=== PATIENT | female | born 1965 | race Caucasian/White ===

== ENCOUNTER → 2019-12-22 09:47 | Outpatient (BNVA) | payer BC, SELFPAY | PROVIDERS: Family Provider Family Medicine; PCP Family Medicine; Visit Provider Nurse Practitioner Family | DX: E11.9 Type 2 diabetes mellitus without complications (principal); I10 Essential (primary) hypertension; E78.00 Pure hypercholesterolemia, unspecified; K21.9 Gastro-esophageal reflux disease without esophagitis; Z68.30 Body mass index [BMI] 30.0-30.9, adult; E78.2 Mixed hyperlipidemia | CPT/HCPCS: 80053; 80061; 82044; 83036; 84439; 84443 ==

== ENCOUNTER 2020-02-16 07:20 | Day surgery (SDC) | payer BC, SELFPAY ==
[2020-02-15 12:34] VITALS: BMI 31.1
[2020-02-16 07:33] VITALS: BP 116/78; PULSE 80; RESP 18; TEMP 36.1; O2SAT 98
[2020-02-16 07:47] LABS: Glucose Point of Care 97 mg/dL (70-110)
[2020-02-16] MEDS: sodium chloride 0.9% 1,000 ML 30 ML IV (07:53)
--- NOTE | 2020-02-16 07:53 | ANES.PREANE2 ---
Pre-Anesthetic Assessment Pre-Anesthetic Assessment: Height/Weight: Height 1.57 m Weight 77.111 kg Temp Pulse Resp BP Pulse Ox 97.0 F L 80 18 116/78 98 02/16/20 07:33 02/16/20 07:33 02/16/20 07:33 02/16/20 07:33 02/16/20 07:33 Preop Diagnosis: GERD Proposed Procedure: Operation Date: 02/16/20 09:00 Proposed Procedures p EGD 68767 K21.9(Not Applicable) - Uvaldo Velazquez MD s Colonoscopy G0121 Z12.11(Not Applicable) - Uvaldo Velazquez MD Familial anesthetic complications: None Was Beta Timmy taken within 24 hours: N/A Last intake: Intake NPO > 8 hrs Last Liquid Date 02/15/20 Last Liquid Time 23:00 Social: Social History: Tobacco and No alcohol Packs per day: 1 ppd Exam: Pre-Anes Outpt Exam: alert, oriented x 3, clear to auscultation bilaterally and regular rate & rhythm Airway: Cervical ROM: WNL MP: 2 Dentition: Other Additional comments: edentulous Pulmonary: Pulmonary: Sleep apnea (cpap) CV/HEM: CV/HEM: HTN : : None reported Hepatic: Hepatic: None reported GI: GI: GERD Metabolic: Metabolic: DM Musc/skel: Musc/skel: None reported Neuropsych: Neuropsych: Seizure (epilepsy on zonisamide (last one 2 years)) Anesthetic Plan: ASA status: 2 Anesthesia: MAC Risk of > 500 ml blood loss (7ml/kg in children): No Meds/Allergies Current Medications: Current Medications Generic Name Dose Route Start Last Admin Trade Name Freq PRN Reason Stop Dose Admin Sodium Chloride 1,000 mls @ 30 ml s/hr 02/16/20 07:30 02/16/20 07:53 Sodium Chloride 0.9% IV 30 mls/hr .Q24H KARLA Administration PFSH Anesthesia PFSH: Social History Smoking and tobacco status: current every day smoker cigarettes Packs smoked per day: 1 Alcohol intake: never Data Anesthesia Other Labs: Laboratory Results - last 48 hr 02/16/20 07:44 POC Glucose 97 Cardiac Studies: No Data to Display
--- NOTE | 2020-02-16 08:45 | W.PM.OPSFHP ---
Same Day Surgery H&P Indication for Procedure/HPI DATE OF PROCEDURE: February 16, 2020 CHIEF COMPLAINT/INDICATIONFOR SURGICAL PROCEDURE: Persistent reflux and screening for colon cancer. PREOP DIAGNOSIS: GERD PLANNED PROCEDRUE: Operation Date: 02/16/20 09:00 Proposed Procedures p EGD 71067 K21.9(Not Applicable) - Uvaldo Velazquez MD s Colonoscopy G0121 Z12.11(Not Applicable) - Uvaldo Velazquez MD Medications/Allergies* Home Medications Medication Instructions Recorded Confirmed Type citalopram 20 mg tablet 20 mg PO DAILY 12/20/19 02/15/20 History metformin 500 mg tablet,extended 500 mg PO DAILY 12/20/19 02/15/20 History release 24 hr aspirin 325 mg tablet 81 mg PO DAILY 12/22/19 02/15/20 History zonisamide 100 mg capsule 400 mg PO DAILY cap 12/22/19 02/15/20 History omeprazole magnesium 20 mg 40 mg PO DAILY tab 01/05/20 02/15/20 History tablet,delayed release Allergies/Adverse Reactions Allergy/AdvReac Type Severity Reaction Status Date / Time Penicillins Allergy Severe ALGY-Anaphy Verified 01/05/20 14:29 laxis Current Medications: Generic Name Dose Route Start Last Admin Trade Name Freq PRN Reason Stop Dose Admin Sodium Chloride 1,000 mls @ 30 mls/hr 02/16/20 07:30 02/16/20 07:53 Sodium Chloride 0.9% IV 30 mls/hr .Q24H KARLA Administration Pertinent History/Comorbid Conditions* Medical History (Updated 01/08/20 @ 13:59 by Uvaldo Velazquez MD) GERD (gastroesophageal reflux disease) Hypertension Mixed hyperlipidemia Type 2 diabetes mellitus Surgical History (Updated 12/22/19 @ 09:45 by Kristel Mae NP) History of breast biopsy History of hysterectomy Family History (Updated 12/20/19 @ 15:19 by Joi Mann LPN) Diabetes Mother Cancer Mother breast cancer Hypertension Mother Social History Smoking and tobacco status: current every day smoker cigarettes Packs smoked per day: 1 Alcohol intake: never Pertinent Exam Findings alert, oriented x 3, clear to auscultation bilaterally, regular rate & rhythm, operative site marked and procedure specific exam findings Recommendations Surgery/Procedure today Coding Level of Care Code Acute Trucker Hand for Myla Chávez
[2020-02-16 09:52] VITALS: BP 113/75; PULSE 71; RESP 18; TEMP 36.4; O2SAT 97
--- NOTE | 2020-02-16 09:57 | ANE.PACU2 ---
 Inpatient post-anesthesia follow up: Airway intact: Yes Vital signs: Temperature 97.6 F Pulse Rate 71 Respiratory Rate 18 Blood Pressure 113/75 Pulse Oximetry 97 Oxygen Delivery Me thod Room Air Oxygen Flow Rate Fraction of Inspir ed Oxygen Hydration adequate: Yes Nausea and vomiting: No Pain level: 1 Mental status: Baseline
[2020-02-16 10:01] VITALS: BP 112/82; PULSE 69; RESP 18; O2SAT 97
[2020-02-19 07:43] LABS: H. Pylori / CLO Test Negative
== END 2020-02-16 10:13 | disposition home or self-care (01) ==
PROVIDERS: PCP Family Medicine; Visit Provider Internal Medicine
PROC: 0DJ08ZZ Inspection of Upper Intestinal Tract, Via Natural or Artificial Opening Endoscopic (ICD-10-PCS; CPT 43235; principal; 2020-02-16 09:00)
PROC: 0DJD8ZZ Inspection of Lower Intestinal Tract, Via Natural or Artificial Opening Endoscopic (ICD-10-PCS; CPT 45378; 2020-02-16 09:00)
DX: Z12.11 Encounter for screening for malignant neoplasm of colon (principal); K57.30 Diverticulosis of large intestine without perforation or abscess without bleeding; K29.70 Gastritis, unspecified, without bleeding; K21.0 Gastro-esophageal reflux disease with esophagitis; I10 Essential (primary) hypertension; E78.2 Mixed hyperlipidemia; E11.9 Type 2 diabetes mellitus without complications; F17.210 Nicotine dependence, cigarettes, uncomplicated
CPT/HCPCS: 43239; 45378; 12345; 36416; 82962; 87077; J2704; J7030

== ENCOUNTER → 2020-03-26 14:42 | Outpatient (BNVA) | payer BC, SELFPAY | PROVIDERS: PCP Family Medicine; Visit Provider Nurse Practitioner Family | DX: M79.672 Pain in left foot (principal); W19.XXXA Unspecified fall, initial encounter; M79.671 Pain in right foot; S92.315A Nondisplaced fracture of first metatarsal bone, left foot, initial encounter for closed fracture | CPT/HCPCS: 73630 ==

== ENCOUNTER → 2020-04-01 13:47 | Outpatient (BNVA) | payer BC, SELFPAY | PROVIDERS: PCP Family Medicine; Referring Provider Nurse Practitioner Family; Visit Provider Podiatrist Foot & Ankle Surgery | DX: S99.922A Unspecified injury of left foot, initial encounter (principal); X58.XXXA Exposure to other specified factors, initial encounter | CPT/HCPCS: 73630 ==

== ENCOUNTER 2020-04-01 16:10 | Outpatient (CLI) | payer BC, SELFPAY | END 2020-04-01 16:11 | disposition home or self-care (01) | LOC: SPT 16:11 | PROVIDERS: PCP Family Medicine; Visit Provider Podiatrist Foot & Ankle Surgery | DX: M76.72 Peroneal tendinitis, left leg (principal) | CPT/HCPCS: 97760; L4361 ==

== ENCOUNTER → 2020-04-15 11:09 | Outpatient (BNVA) | payer BC, SELFPAY | PROVIDERS: PCP Family Medicine; Visit Provider Podiatrist Foot & Ankle Surgery | DX: M72.2 Plantar fascial fibromatosis; M76.72 Peroneal tendinitis, left leg | CPT/HCPCS: 73630 ==

== ENCOUNTER → 2020-07-10 15:16 | Outpatient (BNVA) | payer BC, SELFPAY | PROVIDERS: PCP Family Medicine; Visit Provider Specialist | DX: G40.209 Localization-related (focal) (partial) symptomatic epilepsy and epileptic syndromes with complex partial seizures, not intractable, without status epilepticus (principal); F32.9 Major depressive disorder, single episode, unspecified; F17.210 Nicotine dependence, cigarettes, uncomplicated; Z80.3 Family history of malignant neoplasm of breast; Z91.89 Other specified personal risk factors, not elsewhere classified | CPT/HCPCS: 99214 ==

== ENCOUNTER → 2020-08-16 17:45 | Outpatient (BNVA) | payer BC, SELFPAY | PROVIDERS: PCP Family Medicine; Visit Provider Emergency Medicine | DX: Z20.828 Contact with and (suspected) exposure to other viral communicable diseases (principal) | CPT/HCPCS: 87635 ==

== ENCOUNTER → 2020-08-27 14:00 | Outpatient (BNVA) | payer BC, SELFPAY | PROVIDERS: PCP Family Medicine; Visit Provider Nurse Practitioner Family | DX: Z11.59 Encounter for screening for other viral diseases (principal); R51.9 Headache, unspecified | CPT/HCPCS: 87635 ==

== ENCOUNTER 2020-09-13 14:51 | Outpatient (CLI) | payer BC, SELFPAY ==
--- NOTE | 2020-09-13 14:56 | MM_ITS ---
WS: [id number] BILATERAL DIGITAL SCREENING MAMMOGRAM WITH CAD CLINICAL INFORMATION: screening HISTORY: Screening mammogram. No current complaints. COMPARISON: TECHNIQUE: Bilateral CC and MLO views. FINDINGS: Fatty-replaced breasts bilaterally. No suspicious focal mass, asymmetry, calcifications, or software client architect ural distortion. No evidence of malignancy. Punctate and lucent centered calcifications. MM/[place] [id number] IMPRESSION: BI-RADS: 2-Benign FOLLOW UP: 1 Year Follow-up Recommend return to annual screening mammography.
--- NOTE | 2020-09-13 15:29 | XR_ITS ---
WS: [id number] Bone mineral density performed on a [place], 09/13/2020 Clinical data: see below COMPARISON STUDY: None. Findings: The first 4 lumbar vertebral bodies demonstrated the bone mineral density of 0.984 g/cm2 for a young adult T score of -1.6. Measurement of the left hip reveals a bone mineral density of 0.949 g/cm2 with a young adult T score of -0.5. Measurement of the right hip reveals the bone mineral density of 0.946 g/cm2 for young adult T score of -0.5. XR/XR DEXA axial skeleton* [id number] Impression: 1. The lumbar spine shows osteopenia. 2. Both hips show normal bone mineral density.
== END 2020-09-13 14:52 | disposition home or self-care (01) ==
LOC: RADSHAW 14:52
PROVIDERS: PCP Family Medicine; Visit Provider Specialist
DX: Z12.31 Encounter for screening mammogram for malignant neoplasm of breast (principal); Z00.00 Encounter for general adult medical examination without abnormal findings; M85.88 Other specified disorders of bone density and structure, other site
CPT/HCPCS: 77067; 77080

== ENCOUNTER 2020-09-30 08:24 | Outpatient (CLI) | payer BC, SELFPAY ==
--- NOTE | 2020-09-30 08:31 | CT_ITS ---
WS: [id number] CT HEAD TECHNIQUE: Noncontrast and contrast-enhanced CT of the head. CLINICAL INFORMATION: R51.9 - Headache, unspecified COMPARISON: None. DLP: 1851.[address] scans at [facility] use at least one of these dose optimization techniques: automat ed exposure control; mA and/or kV adjustment per patient size (includes targeted exams where dose is matched to clinical indication); or iterative reconstruction. FINDINGS: No evidence of intracranial hemorrhage or mass effect. Ventricular system and basal cisterns are rodriguez nt. Focal low-attenuation change in the left frontal periventricular white matter likely chronic isch emia. Normal posterior fossa. Otherwise normal perea-white differentiation. Mastoid air cells and para nasal sinuses are well aerated. Normal visualized soft tissues. No abnormal intracranial enhancement. CT/CT head wo/w con [id number] IMPRESSION: 1. No evidence of intracranial hemorrhage or mass effect. 2. Mild small vessel changes. No significant parenchymal volume loss. 3. No abnormal intracranial enhancement. 4. Paranasal sinuses and mastoid air cells well aerated. 5. Focal low-attenuation change in the left periventricular white matter likel y due to chronic ischemia. This appears new since . This can be followe d up with MRI head without and with gadolinium enhancement.
[2020-09-30] MEDS: iohexol 300 mg/mL 100 mL Btl IV (09:15)
== END 2020-09-30 08:25 | disposition home or self-care (01) ==
LOC: RADWPI 08:30
PROVIDERS: PCP Family Medicine; Visit Provider Nurse Practitioner Family
DX: R51.9 Headache, unspecified (principal)
CPT/HCPCS: 70470; Q9967

== ENCOUNTER 2020-10-28 08:43 | Outpatient (CLI) | payer BC, SELFPAY ==
--- NOTE | 2020-10-28 08:56 | MR_ITS ---
WS: [id number] MRI HEAD WITH CONTRAST TECHNIQUE: Sagittal T1, T2 axial, T2 axial FLAIR, axial susceptibility weighted imaging, axial diffus ion weighted images, and coronal T2 images were obtained. Pre and post-T1 axial and post T1 coronal i mages. ADC and FSPGR images. CLINICAL INFORMATION: I67.82 - Cerebral ischemia COMPARISON: September 30, 2020 and FINDINGS: No evidence of restricted diffusion to suggest acute ischemia. Ventricular system and basal cisterns are patent. Mild supratentorial white matter changes slightly progressed since 2018. Mild parenchymal volume loss. No hemosiderin on the susceptibility weighted images. Normal posterior fossa. Normal va scular flow voids at the skull base. No extra-axial fluid collections. No evidence of mass or mass ef fect. Paranasal sinuses and mastoid air cells are well aerated. Normal optic chiasm and pituitary infundibulum. No abnormal intracranial enhancement. Normal dural ve nous sinuses. No other significant findings. MR/MR head wo/w con [id number] IMPRESSION: 1. No evidence of restricted diffusion to suggest acute ischemia. 2. Mild small vessel changes with mild parenchymal volume loss slightly progre ssed since 2018. 3. No abnormal intracranial enhancement. 4. Previously described lesion in the recent CT is chronic. 5. Paranasal sinuses and mastoid air cells well aerated. 6. No other significant findings.
== END 2020-10-28 08:44 | disposition home or self-care (01) ==
LOC: RADWPI 08:45
PROVIDERS: PCP Family Medicine; Visit Provider Nurse Practitioner Family
DX: I67.82 Cerebral ischemia (principal)
CPT/HCPCS: 70553; 71046; 73562; A9579

== ENCOUNTER → 2021-01-24 11:13 | Outpatient (BNVA) | payer BC, SELFPAY | PROVIDERS: PCP Family Medicine; Visit Provider Nurse Practitioner Family | DX: I10 Essential (primary) hypertension (principal); E78.2 Mixed hyperlipidemia; E11.9 Type 2 diabetes mellitus without complications; E55.9 Vitamin D deficiency, unspecified | CPT/HCPCS: 80053; 80061; 82306; 83036; 84439; 84443; 85025 ==

== ENCOUNTER 2021-05-21 11:02 | Emergency (ER) | payer BC, SELFPAY ==
[2021-05-21 11:26] VITALS: BP 118/78; PULSE 87; RESP 16; TEMP 36.3; O2SAT 98; BMI 34.0
[2021-05-21 11:37] VITALS: BP 109/87; PULSE 76; RESP 16; O2SAT 96
--- NOTE | 2021-05-21 11:45 | CT_ITS ---
WS: [id number] CT CERVICAL TRAUMA TECHNIQUE: Noncontrast CT of the cervical spine with coronal and sagittal reformatted images. CLINICAL INFORMATION: fall w LOC COMPARISON: None. DLP: 756.[address] scans at [facility] use at least one of these dose optimization techniques: automat ed exposure control; mA and/or kV adjustment per patient size (includes targeted exams where dose is matched to clinical indication); or iterative reconstruction. FINDINGS: Straightening of the normal cervical lordosis. Mild spondylitic changes. Disc osteophyte complex wors e at C3-C4 with osteophytic ridging. Disc osteophyte complexes at C5-C6 and C6-C7. Normal craniocervi ana junction. Normal C1-C2 articulation. Dens is normal in appearance. Normal occipital condyles. No high-grade spinal canal narrowing. Normal C1 ring. No evidence of acute fracture or dislocation. Normal prevertebral soft tissues. Mastoids air cells are well aerated. CT/CT cervical spin wo con* [id number] IMPRESSION: No acute cervical spine fractures.
--- NOTE | 2021-05-21 11:45 | CT_ITS ---
WS: [id number] CT CHEST, ABDOMEN, AND PELVIS TECHNIQUE: Contrast-enhanced CT of the chest, abdomen, and pelvis with coronal and sagittal reformatt ed images. CLINICAL INFORMATION: fall w LOC COMPARISON: None. DLP: 1579.[address] scans at [facility] use at least one of these dose optimization techniques: automat ed exposure control; mA and/or kV adjustment per patient size (includes targeted exams where dose is matched to clinical indication); or iterative reconstruction. CT CHEST: The lungs are well aerated. No pneumothorax. No evidence of pulmonary contusion. No acute pulmonary i nfiltrates. Normal caliber thoracic aorta. No evidence of acute cord injury. No evidence of aortic dissection. Pr oximal main pulmonary arteries are normal. A few mediastinal and peribronchial lymph nodes not pathol ogically enlarged. Calcified hilar nodes. No axillary lymphadenopathy. Nondisplaced right posterior rib fractures at T10, and T12. Fractures of the right transverse process es at L1, L2, L3, L4, and L5. No acute compression fractures in the lumbar spine. CT ABDOMEN AND PELVIS: Mild diffuse fatty infiltration of the liver. Normal portal vein and splenic vein. Normal gallbladder . Splenic granulomas. Normal GE junction. Fat-containing umbilical hernia. Normal pancreatic parenchy mal enhancement. Adrenal glands are normal. Normal renal parenchymal enhancement. No hydronephrosis. Normal caliber abdominal aorta. No periaortic or retroperitoneal lymphadenopathy. No pelvic or inguinal lymphadenopathy. Sigmoid dive rticulosis. No free fluid in the abdomen or pelvis. CT/CT chest abd pel w con* IMPRESSION: 1. No pneumothorax. Lungs are well aerated. 2. No evidence of acute aortic injury. 3. No free fluid in the abdomen or pelvis. 4. Nondisplaced right posterior 10th and 12th rib fractures. 5. Nondisplaced right transverse process fractures at L1, L2, L3, L4, and L5. 6. No acute compression fractures. Notified Mayank Sheikh DO at 05/21/2021 12:55 PM.
--- NOTE | 2021-05-21 11:46 | CT_ITS ---
WS: [id number] CT HEAD TECHNIQUE: Noncontrast CT of the head obtained from the skullbase to the vertex. CLINICAL INFORMATION: fall w LOC COMPARISON: None. DLP: 852.[address] scans at [facility] use at least one of these dose optimization techniques: automat ed exposure control; mA and/or kV adjustment per patient size (includes targeted exams where dose is matched to clinical indication); or iterative reconstruction. FINDINGS: No evidence of intracranial hemorrhage or mass effect. Ventricular system and basal cisterns are rodriguez nt. Mild small vessel changes with no significant parenchymal volume loss. Evidence of chronic ischem ia in the left periventricular frontal white matter. This is unchanged since the prior MRI October. No extra-axial fluid collections. No evidence of mass or mass effect. Normal perea-white diffe rentiation. Paranasal sinuses and mastoid air cells are well aerated. .Normal visualized soft tissues. CT/CT head wo con* [id number] IMPRESSION: 1. No evidence of intracranial hemorrhage or mass effect. 2. Mild small vessel changes. 3. No acute intracranial findings.
[2021-05-21] MEDS: iohexol 300 mg/mL 100 mL Btl IV (12:16)
[2021-05-21 12:58] LABS: Basophils # 0.1 10^3/uL (0.0-0.1); Basophils % 0.5 %; Eosinophils # 0.1 10^3/uL (0.0-0.8); Eosinophils % 0.8 %; Hematocrit 39.3 % (37.0-47.0); Hemoglobin 12.7 g/dL (11.5-15.3); Lymphocytes # 2.8 10^3/uL (0.8-4.8); Lymphocytes % 28.5 %; Mean Corpuscular HGB Conc 32.3 g/dL (30.0-36.0); Mean Corpuscular Hemoglobin 29.6 pg (28.0-34.0); Mean Corpuscular Volume 91.6 fL (81-99); Mean Platelet Volume 8.6 fL (7.4-10.4); Monocytes # 0.7 10^3/uL (0.2-0.9); Monocytes % 6.7 %; Neutrophils # 6.09 10^3/uL (1.8-7.7); Nucleated Red Blood Cells % 0 %; Platelet Count 290 10^3/cmm (130-400); Red Blood Count 4.29 10^6/uL (4.1-5.3); Red Cell Distribution Width 13.1 % (12.1-15.1); White Blood Count 9.7 10^3/uL (4.0-10.0)
[2021-05-21 12:58] LABS: Add Urine Microscopic? NO; Charge for UA Resulting for Rev
[2021-05-21 13:17] LABS: Alanine Aminotransferase 24 U/L (0-33); Albumin Level 4.1 g/dL (3.5-5.2); Alkaline Phosphatase 110 IU/L (35-105); Anion Gap 13.7 (5-19); Aspartate Amino Transferase 15 U/L (0-32); Blood Urea Nitrogen 10 mg/dL (6-20); Calcium 8.5 mg/dL (8.5-10.5); Carbon Dioxide 23 mmol/L (22-29); Chloride 104 mmol/L (98-107); Creatine Phosphokinase 116 U/L (26-192); Globulin 2.1 g/dL (1.3-4.6); Glomerular Filtration Rate 86.9 mL/min (90-130); Glucose 98 mg/dL (65-115); Osmolality Calculated 283 mOsm/kg (285-295); Potassium 3.7 mmol/L (3.5-5.1); Sodium 137 mmol/L (136-145); Total Bilirubin 0.2 mg/dL (0.15-1.2); Total Protein 6.2 g/dL (6.6-8.7)
[2021-05-21 13:20] VITALS: RESP 16; O2SAT 97
[2021-05-21] MEDS: ketorolac 30 mg/mL INJ IVP (13:20)
[2021-05-21] MEDS: morphine 4 mg/mL SDV 1 mL IVP (13:20)
[2021-05-21 13:21] LABS: Bilirubin Urine Neg (Negative); Blood Urine Neg (Negative); Glucose Urine UA Norm (Normal); Ketones Urine Negative (Negative); Leukocyte Esterase Urine Negative (Negative); Nitrate Urine Negative (Negative); Protein Urine Neg (Negative); Urine Appearance Clear (CLEAR); Urine Color Yellow (Yellow); Urobilinogen Urine 1 mg/dL (Negative); pH Urine 5 (5-7)
--- NOTE | 2021-05-21 13:22 | W.ED.FALL ---
HPI - Fall General: Chief Complaint: Fall Stated Complaint: fall yesterday Time Seen by Provider: 05/21/21 11:36 History of Present Illness: HPI Narrative: 56-year-old female who presents emergency room after falling from 8 feet yesterday. She got lightheaded and dizzy on a ladder she thinks she may have had a seizure she has had seizures in the past she fell landed on her back there was a loss of consciousness pain in her low back is worse today. She is not had any difficulty with speech swallowing or vision is pain with any movement through her axial skeleton. Pain with a deep breath. She denies vomiting or diarrhea no hematochezia melena hematemesis cough cramps no hematuria. No further spells of loss of consciousness or recurrent seizures today. MD complaint: fall Onset (ago): day(s) (1) Fall from: from height (distance) (8 ft from a ladder) Place fall occurred: home Loss of consciousness: Yes Prolonged down time: no Context: seizure Location of injury: back Severity: moderate Quality: sharp Associated symptoms-after fall: Reports chest pain; Denies abdominal pain, confusion, difficulty walking, headache(s), hematuria, lightheadedness, neck pain, numbness, short of breath, vertigo or weakness Review of Systems Const: Denies: fever(s), chills, body aches, change in appetite, fatigue or malaise ENMT: Denies: throat pain, ear or mastoid pain, nasal discharge or nasal congestion Card: Reports: chest pain; Denies: lightheadedness Resp: Denies: dyspnea, productive cough or non-productive cough GI: Denies: abdominal pain : Denies: hematuria Musc: Denies: neck pain Skin/Breast: Denies: rash or pruritus Neuro: Denies: headache(s), difficulty walking, vertigo or confusion PFS ED PFSH: Medical History (Updated 05/21/21 @ 13:27 by Mayank Sheikh DO) GERD (gastroesophageal reflux disease) Hypertension Mixed hyperlipidemia Type 2 diabetes mellitus Surgical History History of breast biopsy History of hysterectomy Family History Mother Hypertension Diabetes Cancer breast cancer Social History Smoking and tobacco status: current every day smoker cigarettes Packs smoked per day: 1 Alcohol intake: never History of recent travel: No Physical Exam Const: COMMON NORMALS: no acute distress GENERAL APPEARANCE: cooperative and comfortable ORIENTATION/CONSCIOUSNESS: Yes awake, Yes oriented to person, Yes oriented to place and Yes oriented to time HENMT: COMMON NORMALS: normocephalic, atraumatic and hearing grossly normal bilaterally HEAD & SCALP: normocephalic and atraumatic Neck/C-Spine: COMMON NORMALS: no JVD Resp: COMMON NORMALS: normal respiratory effort, No retractions, No use of accessory muscles and clear to auscultation bilaterally AUSCULTATION: clear to auscultation bilaterally Cardio: COMMON NORMALS: no JVD, regular rate, regular rhythm and No murmurs present (Cardio) RATE: regular rate RHYTHM: regular rhythm GI: COMMON NORMALS: Soft to palpation and No hepatosplenomegaly present AUSCULTATION: Yes normoactive bowel sounds PALPATION: Yes Soft to palpation, No Tenderness to palpation present (GI), No Guarding due to palpation present (GI) and Yes No hepatosplenomegaly present Back/Pelvis: OTHER: Pain across low and middle back especially centrally no radiating pain to the lower extremities deep and reflex +2 for lower extremities straight leg raising negative Extremity: COMMON NORMALS: normal to inspection, capillary refill normal, no clubbing, cyanosis or edema, no calf tenderness and no pedal edema Neuro: SENSORIUM/ORIENTATION: Yes oriented to person, Yes oriented to place and Yes oriented to time Skin: COMMON NORMALS: no rashes or lesions noted GENERAL SKIN EXAM: no rashes or lesions noted Course Vital Signs: Vital signs: Vital Signs Temperature 97.3 F L 05/21/21 11:26 Pulse Rate 76 05/21/21 11:37 Respiratory Rate 16 05/21/21 13:20 Blood Pressure 109/87 05/21/21 11:37 Pulse Oximetry 97 05/21/21 13:20 MDM - Fall MDM Narrative: Medical decision making narrative: CTs reviewed discussed with radiologist reviewed lab and CT with the patient. She has multiple transnondisplaced transverse process fractures and some rib fractures pain medications as needed follow-up with primary care if has worsening or change symptoms recheck. In discussion the patient with seizure was probably triggered by excessive heat exposure. Lab Data: Labs: Lab Results 05/21/21 05/21/21 05/21/21 Range/Units 12:32 12:32 12:34 WBC 9.7 (4.0-10.0) 10^3/ uL RBC 4.29 (4.1-5.3) 10^6/u L Hgb 12.7 (11.5-15.3) g/dL Hct 39.3 (37.0-47.0) % MCV 91.6 (81-99) fL MCH 29.6 (28.0-34.0) pg MCHC 32.3 (30.0-36.0) g/dL RDW 13.1 (12.1-15.1) % Plt Count 290 (130-400) 10^3/c mm MPV 8.6 (7.4-10.4) fL Neut % (Auto) 63.0 % Lymph % (Auto) 28.5 % [place] % (Auto) 6.7 % Eos % (Auto) 0.8 % Baso % (Auto) 0.5 % Neut # (Auto) 6.09 (1.8-7.7) 10^3/u L Lymph # (Auto) 2.8 (0.8-4.8) 10^3/u L [place] # (Auto) 0.7 (0.2-0.9) 10^3/u L Eos # (Auto) 0.1 (0.0-0.8) 10^3/u L Baso # (Auto) 0.1 (0.0-0.1) 10^3/u L Nucleated RBC % (a uto) 0 % Nucleated RBCs # 0.0 /100WBC Sodium 137 (136-145) mmol/L Potassium 3.7 (3.5-5.1) mmol/L Chloride 104 (98-107) mmol/L Carbon Dioxide 23 (22-29) mmol/L Anion Gap 13.7 (5-19) BUN 10 (6-20) mg/dL Creatinine 0.7 (0.5-0.9) mg/dL GFR Calculation 86.9 L (90-130) mL/min Glucose 98 (65-115) mg/dL Calculated Osmolal ity 283 L (285-295) mOsm/k g Calcium 8.5 (8.5-10.5) mg/dL Total Bilirubin 0.2 (0.15-1.2) mg/dL AST 15 (0-32) U/L ALT 24 (0-33) U/L Alkaline Phosphata se 110 H (35-105) IU/L Creatine Kinase 116 (26-192) U/L Total Protein 6.2 L (6.6-8.7) g/dL Albumin 4.1 (3.5-5.2) g/dL Globulin 2.1 (1.3-4.6) g/dL Urine Color Yellow (Yellow) Urine Appearance Clear (CLEAR) Urine pH 5 (5-7) Ur Specific Gravit y 1.010 (1.005-1.030) Urine Protein Neg (Negative) Urine Glucose (UA) Norm (Normal) Urine Ketones Negative (Negative) Urine Blood Neg (Negative) Urine Nitrate Negative (Negative) Urine Bilirubin Neg (Negative) Urine Urobilinogen 1 H (Negative) mg/dL Ur Leukocyte Jeri ase Negative (Negative) Discharge Plan Discharge Patient Disposition: Home Clinical Impression: Fall, Closed rib fracture, Fracture of transverse process of lumbar vertebra Condition: Stable Prescriptions: New hydrocodone-acetaminophen 5-325 mg tablet 1 tab PO Q6H PRN (Reason: pain) Qty: 20 RF: 0 No Action Prilosec OTC 20 mg tablet,delayed release (DR/EC) 40 mg PO DAILY RF: 0 cholecalciferol (vitamin D3) 50 mcg (2,000 unit) capsule 25 mcg PO DAILY RF: 0 (DME) Cam boot See Rx Instructions .Route .MEDSUPPLY Qty: 1 RF: 0 zonisamide 100 mg capsule 400 mg PO DAILY Qty: 360 RF: 3 metformin 500 mg tablet extended release 24 hr 500 mg PO DAILY Qty: 30 RF: 11 aspirin 81 mg Tablet,Chewable 81 mg PO DAILY RF: 0 simvastatin 40 mg tablet 40 mg PO DAILY RF: 0 Celexa 20 mg tablet 20 mg PO DAILY@2000 RF: 0 losartan 100 mg tablet 100 mg PO DAILY RF: 0 Discharge Orders: Discharge ED (Routine); Ordered 05/21/21 Ordered By: Mayank Sheikh Referrals: Lexa Bright DO [Primary Care Provider] - Patient Instructions: Opioid Safety Coding Level of Care Code ED Manufacturing Technology Analyst for Chg Fwd Exam Comprehensive
[2021-05-21 13:57] VITALS: BP 116/67; PULSE 67; RESP 14; O2SAT 97
== END 2021-05-21 13:52 | disposition home or self-care (01) ==
PROVIDERS: Emergency Provider Family Medicine; PCP Family Medicine
DX: F17.210 Nicotine dependence, cigarettes, uncomplicated (principal); S22.41XA Multiple fractures of ribs, right side, initial encounter for closed fracture; S32.019A Unspecified fracture of first lumbar vertebra, initial encounter for closed fracture; S32.029A Unspecified fracture of second lumbar vertebra, initial encounter for closed fracture; S32.039A Unspecified fracture of third lumbar vertebra, initial encounter for closed fracture; S32.049A Unspecified fracture of fourth lumbar vertebra, initial encounter for closed fracture; S32.059A Unspecified fracture of fifth lumbar vertebra, initial encounter for closed fracture; E11.9 Type 2 diabetes mellitus without complications; E78.2 Mixed hyperlipidemia; I10 Essential (primary) hypertension; W11.XXXA Fall on and from ladder, initial encounter; Z79.84 Long term (current) use of oral hypoglycemic drugs
CPT/HCPCS: 70450; 71260; 72125; 74177; 80053; 81003; 82550; 85025; 96374; 96375; 99283; J1885; J2270; Q9967